=== PATIENT | female | born 1990 | race Caucasian/White ===

== ENCOUNTER 2021-10-11 11:27 | Emergency (ER) | payer SELFPAY ==
--- NOTE | ~2021-10-11 | XR_ITS ---
[id number] DATE: 10/11/2021 12:14 INDICATION: Right posterior rib pain. Cough. TECHNIQUE: PA chest. 3 views of right ribs. COMPARISON: None FINDINGS: There are 13 pairs of ribs. No rib fracture or bone destruction. The right lung is clear. No pneumothorax or pleural effusion. IMPRESSION: Negative Reviewed, dictated and finalized at [facility]. Reviewed, dictated and finalized at [facility]. IMPRESSION: Negative
[2021-10-11 11:39] VITALS: BP 145/90; PULSE 119; RESP 16; TEMP 37.3; O2SAT 99
--- NOTE | 2021-10-11 11:56 | ED.BACK ---
HPI - Back Pain/Injury General Chief Complaint: Back Pain/Injury Stated Complaint: back pain Time Seen by Provider: 10/11/21 11:56 Source: patient Mode of arrival: ambulatory Limitations: no limitations History of Present Illness HPI Narrative: 31-year-old female presents with complaint of right sided mid back pain. States that pain started after she coughed last night. Reports that she had a URI over a week ago but continues to have cough. Reports that she smokes daily. Short of breath due to back pain. Denies fever chills. Has not taken any [id number] pain medications. Is concerned she fractured or dislocated around. All systems reviewed and negative except as noted above. Related Data Allergies Allergy/AdvReac Type Severity Reaction Status Date / Time No Known Allergies Allergy Verified 10/11/21 11:52 Review of Systems Review of Systems: CONSTITUTIONAL: Denies fever, chills, or sweats. EYES: Denies visual changes, redness, or discharge. ENT: Denies rhinorrhea, congestion, sore throat, or otalgia. CARDIOVASCULAR: Denies chest pain, palpitations, or edema. RESPIRATORY: Reports cough. Denies dyspnea. GASTROINTESTINAL: Denies abdominal pain, nausea, vomiting, or diarrhea. GENITOURINARY: Denies dysuria or hematuria. SKIN: Denies rash or itching. MUSCULOSKELETAL: Denies joint pain, or myalgia. Reports right-sided mid back pain. NEUROLOGIC: Denies headache, numbness, or weakness. PSYCHIATRIC: Denies anxiety or depression. All other systems reviewed are negative, except as documented in HPI. PMFSH Comments At time of signature, agree with nursing past medical, surgical, social and family history. There is no relevant family history pertinent to the presenting complaint. Exam Narrative: GENERAL: This is a well-nourished, well-developed patient, in no apparent distress. HEAD: normocephalic, atraumatic. EYES: PERRL. Sclera clear/white. Vision is grossly intact. EARS: External ears normal NOSE: External nose normal NECK: Neck supple, non-tender without lymphadenopathy, masses or thyromegaly. CARDIOVASCULAR: Regular rate and rhythm without murmurs, gallops, or rubs. RESPIRATORY: Tight with mild wheezes throughout all lung baig. No respiratory distress. SKIN: warm, Dry, intact with no suspicious lesions or rash, good texture and turgor. NEURO: awake, alert, and oriented to person, place and time. There were no obvious focal neurologic abnormalities. EXTREMITIES: Normal range of motion to all extremities. BACK: Muscular tenderness on palpation 9 mid back. Muscle spasm noted. Extrem: Shoulder/upper arm images: 1. Tender on palpation Course Course Level of Care: Express Care Visit Vital Signs Vital signs: Vital Signs Temperature 37.3 C 10/11/21 11:39 Pulse Rate 119 H 10/11/21 11:39 Respiratory Rate 16 10/11/21 11:39 Blood Pressure 145/90 H 10/11/21 11:39 Pulse Oximetry 99 10/11/21 11:39 Temperature 37.3 C 10/11/21 11:39 Pulse Rate 119 H 10/11/21 11:39 Respiratory Rate 16 10/11/21 11:39 Blood Pressure 145/90 H 10/11/21 11:39 Pulse Oximetry 99 10/11/21 11:39 Reviewed MDM - Back Pain/Injury MDM Narrative Medical decision making narrative: Discussed x-ray results with patient. No fracture. Will discharge home with treatment for acute bronchitis and muscle strain. Patient is aware of diagnosis, understands and agrees to treatment plan. Anticipatory guidance given. Patient agrees to follow-up as directed and is aware of reasons to seek care at the emergency department. Portions of this record may have been created with voice recognition software Imaging Data Attestation: I personally reviewed and interpreted this imaging study as follows: My impression: agree with radiologist Radiologist's impression: [id number] DATE: 10/11/2021 12:14 INDICATION: Right posterior rib pain. Cough. TECHNIQUE: PA chest. 3 views of right ribs. COMPARISON: None FINDING
== END 2021-10-11 12:45 | disposition home or self-care (01) ==
PROVIDERS: Emergency Provider Nurse Practitioner Family
DX: J20.9 Acute bronchitis, unspecified (principal); S29.012A Strain of muscle and tendon of back wall of thorax, initial encounter; X58.XXXA Exposure to other specified factors, initial encounter; Q21.1 Atrial septal defect
CPT/HCPCS: 71101; 99203; G0463